=== PATIENT | female | born 1980 | race Caucasian/White ===

== ENCOUNTER 2021-01-29 13:46 | Day surgery (SDC) | payer BC ==
[2021-01-29] MEDS ORDERED: ONDANSETRON 4 MG/2 ML VIAL IVPUSH PRN ×2 (13:55→16:38)
[2021-01-29] MEDS ORDERED: LACTATED RINGERS SOLUTION 1,000 ML IV SCH (14:00)
[2021-01-29] MEDS ORDERED: BUPIVACAINE HCL/PF 0.25% (2.5MG/ML) 10 ML VIAL ONE (14:02)
[2021-01-29] MEDS ORDERED: MIDAZOLAM HCL 2 MG/2 ML SINGLE DOSE VIAL ONE ×2 (14:02→16:13)
[2021-01-29] MEDS ORDERED: ROCURONIUM BROMIDE 50 MG/5 ML SYRINGE ONE (14:02)
[2021-01-29 14:10] VITALS: BMI 23.6
[2021-01-29] MEDS ORDERED: ONDANSETRON 4 MG/2 ML VIAL ONE ×3 (15:09→16:51)
[2021-01-29] MEDS ORDERED: DEXAMETHASONE SOD PHOSPHATE 4 MG/1 ML VIAL ONE ×2 (15:09→15:17)
[2021-01-29] MEDS ORDERED: LIDOCAINE HCL/PF 2% SDV 5ML VIAL ONE (15:20)
[2021-01-29] MEDS ORDERED: METOPROLOL TARTRATE 5 MG/5 ML VIAL ONE (15:30)
[2021-01-29] MEDS ORDERED: NEOSTIGMINE METHYLSULFATE 0.5 MG/1 ML - 10 ML MDV ONE (16:04)
[2021-01-29] MEDS ORDERED: GLYCOPYRROLATE 0.2 MG/1 ML VIAL ONE (16:04)
[2021-01-29] MEDS ORDERED: KETOROLAC TROMETHAMINE 30 MG/1 ML VIAL ONE (16:18)
[2021-01-29] MEDS ORDERED: ACETAMINOPHEN 325 MG TABLET (FP) PO PRN (16:38)
[2021-01-29] MEDS ORDERED: HYDROmorphone HCl 2 MG/ML VIAL IVPB PRN (16:41)
[2021-01-29] MEDS ORDERED: SODIUM CHLORIDE 1,000 ML IV SCH (16:45)
[2021-01-29 17:06] LABS: HEMATOCRIT 40.3 % (32.4-45.2); HEMOGLOBIN 13.5 GM/dl (10.7-15.3); MCHC 33.5 g/dl (32.0-36.0); MEAN CELL VOLUME 86.4 fl (80-96); MEAN PLT VOLUME 8.8 fl (7.5-11.1); PLATELET COUNT 308 K/MM3 (134-434); RBC 4.66 M/mm3 (3.60-5.2); RDW 13.7 % (11.6-15.6); WHITE BLOOD COUNT 7.3 K/mm3 (4.0-10.8)
[2021-01-29 17:26] LABS: CALCIUM 8.8 mg/dl (8.5-10); CREATININE 0.6 mg/dl (0.55-1.3)
[2021-01-29] MEDS ORDERED: ZOLPIDEM TARTRATE 5 MG TABLET PO PRN (18:55)
[2021-01-29] MEDS: HYDROmorphone HCl 2 MG/ML VIAL IVPB PRN (21:25)
[2021-01-29] MEDS: FAMOTIDINE 20 MG/50 ML IVPB 20 MG/50 ML MG IVPB SCH (21:53)
[2021-01-30] MEDS: HYDROmorphone HCl 2 MG/ML VIAL IVPB PRN (02:57)
[2021-01-30] MEDS ORDERED: oxyCODONE HCL 5 MG TABLET PO PRN ×2 (06:43→06:49)
[2021-01-30 08:32] LABS: HEMATOCRIT 34.7 % (32.4-45.2); HEMOGLOBIN 11.3 GM/dl (10.7-15.3); MCH 28.3 pg (25.7-33.7); MCHC 32.6 g/dl (32.0-36.0); MEAN PLT VOLUME 9.3 fl (7.5-11.1); PLATELET COUNT 285 K/MM3 (134-434); RBC 3.99 M/mm3 (3.60-5.2); RDW 14.2 % (11.6-15.6); WHITE BLOOD COUNT 9.6 K/mm3 (4.0-10.8)
[2021-01-30 08:47] LABS: ALBUMIN 3.1 g/dl (3.4-5.0); BILIRUBIN,TOTAL 0.5 mg/dl (0.2-1); CALCIUM 8.9 mg/dl (8.5-10); CREATININE 0.4 mg/dl (0.55-1.3); TOT PROT 5.7 g/dl (6.4-8.2)
[2021-01-30] MEDS: FAMOTIDINE 20 MG/50 ML IVPB 20 MG/50 ML MG IVPB SCH (09:21)
[2021-01-30 09:29] VITALS: BP 102/64; PULSE 56; TEMP 98.4
== END 2021-01-30 12:47 | disposition home or self-care (01) ==
LOC: FASUSAT 13:46 → FM/S 18:49 → FASUSAT 01-30 12:17 → UNDOADMIN 01-30 12:18 → FM/S 01-30 12:18 → UNDODISIN 01-30 12:47 → FASUSAT 01-30 12:47
PROVIDERS: ATTEND Surgery
PROC: 0DN64ZZ Release Stomach, Percutaneous Endoscopic Approach (ICD-10-PCS; 2021-01-29)
PROC: 0DP64CZ Removal of Extraluminal Device from Stomach, Percutaneous Endoscopic Approach (ICD-10-PCS; principal; 2021-01-29 15:22)
DX: T85.518A Breakdown (mechanical) of other gastrointestinal prosthetic devices, implants and grafts, initial encounter (principal); R10.13 Epigastric pain; R11.11 Vomiting without nausea; Y73.3 Surgical instruments, materials and gastroenterology and urology devices (including sutures) associated with adverse incidents; Y93.89 Activity, other specified; Y92.89 Other specified places as the place of occurrence of the external cause
CPT/HCPCS: 36415; 80048; 80053; 85027; 88300-TC; 88304-TC; 94760

== ENCOUNTER 2022-06-10 06:26 | Inpatient (IN) | payer BC ==
[2022-06-08 10:01] VITALS: BMI 40.2
[2022-06-10] MEDS ORDERED: BUPIVACAINE HCL/PF 0.25% (2.5MG/ML) 10 ML VIAL ONE (07:12)
[2022-06-10] MEDS ORDERED: PROPOFOL 40 ML ONE (07:21)
[2022-06-10] MEDS ORDERED: MIDAZOLAM HCL 2 MG/2 ML SINGLE DOSE VIAL ONE (07:21)
[2022-06-10] MEDS ORDERED: SUCCINYLCHOLINE CHLORIDE 200 MG/10 ML SYRINGE ONE (07:21)
[2022-06-10] MEDS ORDERED: ROCURONIUM BROMIDE 50 MG/5 ML SYRINGE ONE (07:21)
[2022-06-10] MEDS ORDERED: LIDOCAINE HCL 2% 100 MG/5 ML DISP.SYRIN ONE (07:21)
[2022-06-10] MEDS ORDERED: DEXAMETHASONE SOD PHOSPHATE 4 MG/1 ML VIAL ONE (08:29)
[2022-06-10] MEDS ORDERED: ceFAZolin SODIUM 1 GM VIAL ONE (08:29)
[2022-06-10] MEDS ORDERED: BUPIVACAINE HCL/PF 0.25% (2.5MG/ML) 10 ML VIAL IJ ONE ×2 (09:01→10:28)
[2022-06-10] MEDS ORDERED: ONDANSETRON 4 MG/2 ML VIAL ONE ×2 (09:54→11:30)
[2022-06-10] MEDS ORDERED: ONDANSETRON 4 MG/2 ML VIAL IVPUSH PRN ×2 (10:27→10:42)
[2022-06-10] MEDS ORDERED: ACETAMINOPHEN 1000 MG/100 ML BAG IVPB ONE (10:42)
[2022-06-10] MEDS ORDERED: FENTANYL CITRATE/PF 50 MCG/ML VIAL ONE ×2 (10:42→11:31)
[2022-06-10] MEDS ORDERED: PROMETHAZINE HCL 25 MG/1 ML VIAL IVPUSH PRN (10:42)
[2022-06-10] MEDS ORDERED: LACTATED RINGERS SOLUTION 1,000 ML IV SCH (10:45)
[2022-06-10 11:30] LABS: HEMATOCRIT 44.5 % (32.4-45.2); HEMOGLOBIN 16.1 G/dL (10.7-15.3); MCH 33.9 pg (25.7-33.7); MCHC 36.1 g/dl (32.0-36.0); MEAN CELL VOLUME 94.1 fl (80-96); PLATELET COUNT 218.8 10^3/uL (134-434); RBC 4.73 10^6/uL (3.60-5.2); RDW 13.6 % (11.6-15.6); WHITE BLOOD COUNT 9.9 10^3/uL (4.0-10.8)
[2022-06-10 11:52] LABS: ALBUMIN 3.6 g/dl (3.4-5.0); BILIRUBIN,TOTAL 0.4 mg/dl (0.2-1); CALCIUM 8.5 mg/dl (8.5-10); CREATININE 0.7 mg/dl (0.55-1.3); TOT PROT 6.6 g/dl (6.4-8.2)
[2022-06-10 14:09] VITALS: RESP 18
[2022-06-10] MEDS: HYDROmorphone HCl 2 MG/ML VIAL IVPB PRN ×3 (14:27→22:45)
[2022-06-10] MEDS: SODIUM CHLORIDE 1,000 ML IV SCH (14:49)
[2022-06-10 20:45] LABS: ALBUMIN 3.3 g/dl (3.4-5.0); BILIRUBIN,TOTAL 0.4 mg/dl (0.2-1); CALCIUM 8.4 mg/dl (8.5-10); CREATININE 0.5 mg/dl (0.55-1.3); TOT PROT 6.4 g/dl (6.4-8.2)
[2022-06-10 20:54] LABS: HEMATOCRIT 42.2 % (32.4-45.2); HEMOGLOBIN 15.4 G/dL (10.7-15.3); MCH 34.3 pg (25.7-33.7); MCHC 36.4 g/dl (32.0-36.0); MEAN CELL VOLUME 94.3 fl (80-96); MEAN PLT VOLUME 7.9 fl (7.5-11.1); RBC 4.48 10^6/uL (3.60-5.2); RDW 13.6 % (11.6-15.6)
[2022-06-10] MEDS: FAMOTIDINE 20 MG/50 ML IVPB 20 MG/50 ML MG IVPB SCH (21:09)
[2022-06-10] MEDS: METOCLOPRAMIDE HCL INJECTION 10 MG/2 ML VIAL IVPUSH SCH (21:54)
[2022-06-11] MEDS: METOCLOPRAMIDE HCL INJECTION 10 MG/2 ML VIAL IVPUSH SCH ×3 (04:18→10:06)
[2022-06-11] MEDS: HYDROmorphone HCl 2 MG/ML VIAL IVPB PRN ×2 (04:41→10:08)
[2022-06-11 08:07] LABS: HEMATOCRIT 41.3 % (32.4-45.2); HEMOGLOBIN 14.5 G/dL (10.7-15.3); MCH 33.1 pg (25.7-33.7); MCHC 35.1 g/dl (32.0-36.0); MEAN PLT VOLUME 8.3 fl (7.5-11.1); PLATELET COUNT 221.6 10^3/uL (134-434); RBC 4.39 10^6/uL (3.60-5.2); RDW 13.6 % (11.6-15.6); WHITE BLOOD COUNT 11.4 10^3/uL (4.0-10.8)
[2022-06-11 08:22] LABS: ALBUMIN 3.1 g/dl (3.4-5.0); BILIRUBIN,TOTAL 0.6 mg/dl (0.2-1); CREATININE 0.5 mg/dl (0.55-1.3); TOT PROT 6.1 g/dl (6.4-8.2)
[2022-06-11] MEDS ORDERED: HYDROmorphone HCL/PF 1 MG/ML VIAL IVPB PRN ×2 (10:02→10:03)
[2022-06-11] MEDS: FAMOTIDINE 20 MG/50 ML IVPB 20 MG/50 ML MG IVPB SCH (10:06)
[2022-06-11] MEDS: SODIUM CHLORIDE 1,000 ML IV SCH (10:09)
[2022-06-11] MEDS ORDERED: ACETAMINOPHEN 325 MG TABLET (FP) PO PRN (12:23)
[2022-06-11] MEDS ORDERED: oxyCODONE HCL 5 MG TABLET PO PRN (12:23)
[2022-06-11] MEDS ORDERED: SODIUM CHLORIDE 1,000 ML IV SCH (12:30)
[2022-06-11 14:17] VITALS: BP 138/77; PULSE 101; TEMP 99.3
== END 2022-06-11 14:45 | disposition home or self-care (01) | DRG 621 ==
LOC: FM/S 06:26
PROVIDERS: ADMIT Surgery; ATTEND Surgery
PROC: 0DNW4ZZ Release Peritoneum, Percutaneous Endoscopic Approach (ICD-10-PCS; 2022-06-10)
PROC: 0DB64Z3 Excision of Stomach, Percutaneous Endoscopic Approach, Vertical (ICD-10-PCS; principal; 2022-06-10 08:39)
PROC: 0FB24ZX Excision of Left Lobe Liver, Percutaneous Endoscopic Approach, Diagnostic (ICD-10-PCS; 2022-06-10 08:39)
DX: E66.01 Morbid (severe) obesity due to excess calories (principal); Z68.39 Body mass index [BMI] 39.0-39.9, adult; R16.0 Hepatomegaly, not elsewhere classified; F41.8 Other specified anxiety disorders; K66.0 Peritoneal adhesions (postprocedural) (postinfection); F17.210 Nicotine dependence, cigarettes, uncomplicated
CPT/HCPCS: 36415; 74240-TC-FY; 80053; 85027; 86850; 86900; 86901; 88307-TC; 94760